=== PATIENT | male | born 1990 | race African-American/Black ===

== ENCOUNTER 2019-03-16 08:28 | Emergency (ER) | payer BC, OTHER ==
[~2019-03-16] VITALS: Ht 170.2 cm; Wt 63.5 kg
[2019-03-16 08:35] VITALS: BP 151/80
== END 2019-03-16 09:06 | disposition home or self-care (01) ==
LOC: ER 08:31
DX: J06.9 Acute upper respiratory infection, unspecified (principal); J20.9 Acute bronchitis, unspecified